=== PATIENT | female | born 1950 | race African-American/Black ===

== ENCOUNTER 2020-12-30 21:11 | Inpatient (IN) | payer MEDICARE, MEDICAID ==
[~2020-12-30] VITALS: Ht 162.6 cm; Wt 82.6 kg
[2020-12-30] MEDS ORDERED: ACETAMINOPHEN 325MG TABLET PO STA (22:15)
[2020-12-30] MEDS ORDERED: AZITHROMYCIN 500MG/250ML 250 ML IV ONE (23:00)
[2020-12-30] MEDS ORDERED: CEFTRIAXONE 1 G PREMIX 50 ML IV ONE (23:00)
[2020-12-30 23:42] LABS: BASOPHILS % 0.6 % (0.0-2.0); EOSINOPHILS % 0.8 % (0.0-5.0); HEMATOCRIT. 29.9 % (36.0-48.0); HEMOGLOBIN. 9.7 g/dL (12.0-16.0); MEAN CORPUSCULAR HEMOGLOBIN 29.1 pg (28.0-32.0); MEAN CORPUSCULAR VOLUME 89.2 fL (81.0-99.0); MEAN PLATELET VOLUME 8.9 fl (7.4-10.4); NEUTROPHILS % 77.6 % (40.0-76.0); PLATELET 248 x1000/uL (130-400); RED BLOOD CELL COUNT 3.35 mill/uL (4.2-5.4); RED CELL DISTRIBUTION WIDTH 17.6 % (11.6-14.6)
[2020-12-30 23:54] LABS: CHLORIDE 112 mEq/L (98-107)
[2020-12-31] VITALS (9 sets, daily range): BP systolic 111–145; BP diastolic 52–80
[2020-12-31 00:20] LABS: CLARITY URINE CLEAR (CLEAR); COLOR URINE YELLOW (YELLOW); KETONES URINE NEGATIVE (NEGATIVE); LEUKOCYTE ESTERASE URINE NEGATIVE (NEGATIVE); NITRITE URINE NEGATIVE (NEGATIVE); OCCULT BLOOD URINE NEGATIVE (NEGATIVE); PROTEIN URINE NEGATIVE (NEGATIVE); SPECIFIC GRAVITY URINE 1.022 (1.005-1.030); UROBILINOGEN URINE 0.2 E.U./dL (0.2-1.0)
[2020-12-31] MEDS ORDERED: SODIUM BICARBONATE 8.4% 1 MEQ/ML 50ML SYR IV ONE (00:30)
[2020-12-31] MEDS ORDERED: INSULIN REGULAR (HUMULIN R) 300UNITS/3ML VIAL IV ONE (00:30)
[2020-12-31] MEDS ORDERED: ASPIRIN 325MG EC TABLET PO NR (00:30)
[2020-12-31] MEDS ORDERED: SODIUM POLYSTYRENE SULFONATE 15 G/60 ML BOT PO ONE (00:30)
[2020-12-31] MEDS ORDERED: DEXTROSE 50% WATER 50ML SYRINGE IV ONE ×2 (00:30→04:15)
[2020-12-31] MEDS ORDERED: CALCIUM CHLORIDE 1GM/10ML SYR IV ONE (00:30)
[2020-12-31] MEDS ORDERED: ALBUTEROL (0.083%) 2.5MG/3ML NEB HHN ONE (00:30)
[2020-12-31] MEDS ORDERED: ACETAMINOPHEN 325MG TABLET PO PRN (10:15)
[2020-12-31] MEDS ORDERED: ONDANSETRON HCL 4MG/2ML INJ IV PRN (10:15)
[2020-12-31] MEDS ORDERED: PNEUMOCOCCAL 23-VAL P-SAC VAC 0.5 ML IM ONE (12:00)
[2020-12-31] MEDS: DOCUSATE SODIUM 100MG CAPSULE PO SCH ×2 (13:09→20:55)
[2020-12-31] MEDS ORDERED: HYDR-4009 PO (14:00)
[2020-12-31] MEDS ORDERED: FERR-63 PO (14:00)
[2020-12-31] MEDS ORDERED: CARV12.545 PO (14:00)
[2020-12-31] MEDS ORDERED: OXYC1TAB5 PO (14:00)
[2020-12-31] MEDS ORDERED: SPIR25TA6 PO (14:00)
[2020-12-31] MEDS ORDERED: TEMA15CA PO (14:00)
[2020-12-31] MEDS ORDERED: AMOX-494 PO (14:00)
[2020-12-31] MEDS: DEXT 5%/0.45% NACL 1000ML 1,000 ML IV SCH (15:09)
[2020-12-31] MEDS: HYDROCODONE/ACETAMINOPHEN 10/325MG TABLET PO PRN ×2 (15:46→20:55)
[2021-01-01] VITALS (12 sets, daily range): BP systolic 99–148; BP diastolic 48–85
[2021-01-01] MEDS: HYDROCODONE/ACETAMINOPHEN 10/325MG TABLET PO PRN ×4 (04:12→20:22)
[2021-01-01 06:49] LABS: BASOPHILS % 1.4 % (0.0-2.0); EOSINOPHILS % 1.4 % (0.0-5.0); HEMATOCRIT. 28.1 % (36.0-48.0); HEMOGLOBIN. 9.1 g/dL (12.0-16.0); LYMPHOCYTES % 41.7 % (20.0-50.0); MEAN CORPUSCULAR HEMOGLOBIN 29.1 pg (28.0-32.0); MEAN CORPUSCULAR VOLUME 89.7 fL (81.0-99.0); MEAN PLATELET VOLUME 9.3 fl (7.4-10.4); MONOCYTES % 8.3 % (2.0-8.0); NEUTROPHILS % 47.2 % (40.0-76.0); PLATELET 204 x1000/uL (130-400); RED BLOOD CELL COUNT 3.13 mill/uL (4.2-5.4); RED CELL DISTRIBUTION WIDTH 17.2 % (11.6-14.6)
[2021-01-01] MEDS: DOCUSATE SODIUM 100MG CAPSULE PO SCH ×2 (08:58→16:39)
[2021-01-01] MEDS ORDERED: NALOXONE HCL 0.4MG/ML VIAL IV PRN (09:30)
[2021-01-01] MEDS ORDERED: SODIUM POLYSTYRENE SULFONATE 15 G/60 ML BOT PO NR (11:00)
[2021-01-01] MEDS: DEXT 5%/0.45% NACL 1000ML 1,000 ML IV SCH (11:08)
[2021-01-01] MEDS ORDERED: SPIRONOLACTONE 5MG/ML 1ML ORAL SYR(NEO) PO SCH (20:45)
[2021-01-01] MEDS ORDERED: FERROUS SULFATE 325MG TABLET PO SCH (20:45)
[2021-01-02] MEDS ORDERED: CARVEDILOL 12.5MG TABLET PO SCH (09:00)
== END 2021-01-01 23:30 | disposition short-term general hospital (02) | DRG 73 ==
LOC: ER 21:11 → MICUSO 12-31 00:58 → EDBEDREQSVC 12-31 01:01 → EDBEDREQTM 12-31 01:01 → EDBEDREQ 12-31 01:01 → 3WST 12-31 04:57
PROVIDERS: ADMIT Internal Medicine Nephrology; ATTEND Internal Medicine Nephrology
DX: G90.8 Other disorders of autonomic nervous system (principal); N17.0 Acute kidney failure with tubular necrosis; I69.351 Hemiplegia and hemiparesis following cerebral infarction affecting right dominant side; E44.0 Moderate protein-calorie malnutrition; D64.9 Anemia, unspecified; E16.2 Hypoglycemia, unspecified; E87.5 Hyperkalemia; E87.8 Other disorders of electrolyte and fluid balance, not elsewhere classified; I10 Essential (primary) hypertension; I25.10 Atherosclerotic heart disease of native coronary artery without angina pectoris; J44.9 Chronic obstructive pulmonary disease, unspecified; K59.00 Constipation, unspecified; Z96.643 Presence of artificial hip joint, bilateral; Z60.2 Problems related to living alone; Z20.822 Contact with and (suspected) exposure to COVID-19; I25.2 Old myocardial infarction; Z95.5 Presence of coronary angioplasty implant and graft; Z79.899 Other long term (current) drug therapy; Z68.31 Body mass index [BMI] 31.0-31.9, adult
CPT/HCPCS: 36415; 71045; 72170; 80048; 80053; 81003; 82962; 83880; 84132; 84484; 85025; 87426; 90732; 93005; 93970; 97162; 99291; J0456; J0696; J1815; J3490